=== PATIENT | female | born 1995 | race Caucasian/White ===

== ENCOUNTER → 2016-03-04 | Outpatient (CLI) | payer BC ==
[~2016-03-04] MED LIST: ONDA4TAB46 PO; OXYC-57 PO; PRENTAB26 PO
[2016-03-04 10:59] LABS: HEMATOCRIT 35.8 % (37-47)
== END | disposition home or self-care (01) ==
LOC: C.LAB1850 09:26
PROVIDERS: ATTEND Obstetrics & Gynecology
DX: O28.1 Abnormal biochemical finding on antenatal screening of mother (principal)

== ENCOUNTER 2016-06-19 11:05 | Day surgery (SDC) | payer BC, OTHER ==
[2016-06-16 08:54] VITALS: BMI 28.0
[~2016-06-19] VITALS: Ht 175.3 cm; Wt 88.6 kg
--- NOTE | 2016-06-19 08:33 | Endo History and Physical ---
History & Physical Date of Service: June 19, 2016. Chief Complaint: Abdominal pain Referring Physician: Dr. turner / Ms. Vieyra History of Present Illness 20 year old female found to have elevated liver tests, ruq pain and an ultrasound with biliary sludge and stones in the GB. Referred for EUS to evaluate for evidence of CBD stones and need of ERCP (if positive) Past Surgical History Hx Cardiac Surgery: No Hx Abdominal Surgery: Yes ( APRIL 2016) Hx Post-Op Nausea and Vomiting: No Hx Cancer Surgery: No Hx Thoracic Surgery: No Hx Orthopedic: No Hx Urinary Tract Surgery: No Social History Smoking Status: Never Smoker Hx Substance Use: No Hx Alcohol Use: No Allergies Coded Allergies: No Known Allergies (Unverified , 06/19/16) Current Medications Reported Home Medications Medications Dose Route/Sig Max Daily Dose Days Date Category Dose Instructions Zofran (Ondansetron HCl) 4 Mg Tab 4 Mg PO Q8H PRN 06/16/16 Reported Percocet 5MG/325MG (Oxycodone/Acetaminophen) Tab 1 Tablet PO Q4H PRN 06/16/16 Reported PAIN Vitamin (Prenat Multivit/Switch Adjuster/Iron/Folic Ac) Tab 1 Tab PO DAILY 06/16/16 Reported Vital Signs Weight (Kilograms): 88.64 Height (Feet): 5 Height (Inches): 9 Physical Exam General Appearance: no apparent distress Respiratory/Chest: Auscultation: breath sounds normal Cardiovascular: Heart Auscultation: RRR Abdomen: Inspection & Palpation: soft Assessment and Plan Patient referred for EUS and possible ERCP to evaluate for suspect CBD stones. We have discussed the risks to include bleeding, infection, perforation, pain, and pancreatitis.
[~2016-06-19 11:05] MED LIST changes: +FENTANYL CITRATE INJ 50 MCG/1 ML 2 ML VIAL ONE; +INDOMETHACIN 50 MG SUPP PR SCH; +LACTATED RINGER'S 1000ML 1,000 ML IV ONE; +LACTATED RINGER'S 1000ML 1,000 ML IV SCH; +MIDAZOLAM HCL 1 MG/ML 2ML VIAL ONE; -PRENTAB26 PO
[2016-06-19 11:15] VITALS: BP 113/70; PULSE 72; TEMP 36.7; O2SAT 98; Ht 175.3 cm; Wt 88.6 kg
[2016-06-19] MEDS ORDERED: METOCLOPRAMIDE HCL INJ 5 MG/ML 2 ML VIAL IV PRN (11:45)
[2016-06-19] MEDS ORDERED: FENTANYL CITRATE INJ 50 MCG/1 ML 2 ML VIAL IV PRN (11:45)
[2016-06-19] MEDS ORDERED: DiphenhydrAMINE HCL 50 MG/ML VIAL IV PRN (11:45)
[2016-06-19] MEDS ORDERED: LACTATED RINGER'S 1000ML 1,000 ML IV PRN (11:45)
[2016-06-19] MEDS ORDERED: ONDANSETRON INJ 2 MG/ML 2 ML VIAL IV PRN ×2 (11:45→12:30)
--- NOTE | 2016-06-19 12:03 | GI REPORT ---
Procedure Date: 06/19/2016 11:52 AM Procedure: Upper GI endoscopy Indications: Epigastric abdominal pain, Abdominal pain in the right upper quadrant Medicines: General Anesthesia Complications: No immediate complications. Estimated blood loss: Minimal. Estimated Blood Loss: Estimated blood loss was minimal. Procedure: Pre-Anesthesia Assessment: - Prior to the procedure, a History and Physical was performed, and patient medications, allergies and sensitivities were reviewed. The patient's tolerance of previous anesthesia was reviewed. - The risks and benefits of the procedure and the sedation options and risks were discussed with the patient. All questions were answered and informed consent was obtained. - Patient identification and proposed procedure were verified prior to the procedure by the physician, the nurse and the fitness and wellness manager. The procedure was verified in the procedure room. - Pre-procedure physical examination revealed no contraindications to sedation. - ASA Grade Assessment: II - A patient with mild systemic disease. - After reviewing the risks and benefits, the patient was deemed in satisfactory condition to undergo the procedure. - The anesthesia plan was to use general anesthesia. - Immediately prior to administration of medications, the patient was re-assessed for adequacy to receive sedatives. - The heart rate, respiratory rate, oxygen saturations, blood pressure, adequacy of pulmonary ventilation, and response to care were monitored throughout the procedure. - The physical status of the patient was re-assessed after the procedure. After obtaining informed consent, the endoscope was passed under direct vision. Throughout the procedure, the patient's blood pressure, pulse, and oxygen saturations were monitored continuously. The scope was introduced through the mouth, and advanced to the third part of duodenum. The upper GI endoscopy was accomplished without difficulty. The patient tolerated the procedure well. Findings: The examined esophagus was normal. The Z-line was regular and was found 36 cm from the incisors. The entire examined stomach was normal. The examined duodenum was normal. Impression: - Normal esophagus. - Z-line regular, 36 cm from the incisors. - Normal stomach. - Normal examined duodenum. - No specimens collected. Recommendation: - Perform an upper endoscopic ultrasound (UEUS) today. Bernardo Tracy D.O. Bernardo Tracy DO 06/19/2016 12:03:45 PM This report has been signed electronically. Note Initiated On: 06/19/2016 11:52 AM I attest to the content of the Intraoperative Record and orders documented therein, exceptions below
[2016-06-19] MEDS ORDERED: LIDOCAINE HCL 2% 2 ML VIAL (20MG/ML) ONE (12:13)
[2016-06-19] MEDS ORDERED: DEXAMETHASONE SOD INJ 4 MG/ML VIAL ONE (12:13)
[2016-06-19] MEDS ORDERED: SUCCINYLCHOLINE CHLORIDE 20 MG/ML 10 ML VIAL IV ONE (12:13)
[2016-06-19] MEDS ORDERED: ONDANSETRON INJ 2 MG/ML 2 ML VIAL ONE (12:13)
[2016-06-19] MEDS ORDERED: PROPOFOL IV EMULSION 10 MG/ML 20 ML VIAL IV ONE (12:13)
[2016-06-19] MEDS ORDERED: ROCURONIUM BROMIDE 10 MG/ML 5 ML VIAL ONE (12:13)
[2016-06-19] MEDS ORDERED: LARYING-O-JET KIT (LTA) EXT ONE ×2 (12:19)
--- NOTE | 2016-06-19 12:24 | GI REPORT ---
Procedure Date: 06/19/2016 12:03 PM Procedure: Upper EUS Indications: Abnormal liver function test, Suspected choledocholithiasis, Epigastric abdominal pain, Abdominal pain in the right upper quadrant Medicines: General Anesthesia Complications: No immediate complications. Estimated blood loss: Minimal. Estimated Blood Loss: Estimated blood loss was minimal. Procedure: Pre-Anesthesia Assessment: - Prior to the procedure, a History and Physical was performed, and patient medications, allergies and sensitivities were reviewed. The patient's tolerance of previous anesthesia was reviewed. - The risks and benefits of the procedure and the sedation options and risks were discussed with the patient. All questions were answered and informed consent was obtained. - Patient identification and proposed procedure were verified prior to the procedure by the physician, the nurse and the power screwdriver operator. The procedure was verified in the procedure room. - Pre-procedure physical examination revealed no contraindications to sedation. - ASA Grade Assessment: II - A patient with mild systemic disease. - After reviewing the risks and benefits, the patient was deemed in satisfactory condition to undergo the procedure. - The anesthesia plan was to use general anesthesia. - Immediately prior to administration of medications, the patient was re-assessed for adequacy to receive sedatives. - The heart rate, respiratory rate, oxygen saturations, blood pressure, adequacy of pulmonary ventilation, and response to care were monitored throughout the procedure. - The physical status of the patient was re-assessed after the procedure. After obtaining informed consent, the endoscope was passed under direct vision. Throughout the procedure, the patient's blood pressure, pulse, and oxygen saturations were monitored continuously. The Endosonoscope was introduced through the mouth, and advanced to the second part of duodenum. The upper EUS was accomplished without difficulty. The patient tolerated the procedure well. Findings: Endosonographic Finding : There was no sign of significant endosonographic abnormality in the ampulla. No masses were identified. The ampulla appeared mildly inflammed with a gaping orifice consistent with recent passage of a stone. There was no sign of significant endosonographic abnormality in the common bile duct. No stones and no biliary sludge were identified. The CBD was mildly dilated measuring 5 mm. There was no sign of significant endosonographic abnormality in the liver. Homogeneous parenchyma and no focal pathology were identified. Multiple stones were visualized endosonographically in the gallbladder. The stones measured up to 2 mm in greatest dimension. The stones were round. They were hyperechoic and characterized by shadowing. There was no sign of significant endosonographic abnormality in the entire pancreas. No masses, no cysts, the pancreatic duct was thin in caliber. The PD was 1.3 mm in the body and 2.6 in the pancreatic head. No lymphadenopathy seen. There was no sign of significant endosonographic abnormality in the left adrenal gland. No adrenal gland enlargement was identified. Impression: - Mild inflammation of the ampulla. - 5 mm common bile duct. - Normal liver. - Multiple stones were visualized endosonographically in the gallbladder. - Normal pancreas. - Normal left adrenal. Recommendation: - Discharge patient to home (ambulatory). - Advance diet as tolerated today. - Refer to a surgeon at appointment to be scheduled (cholecystectomy). Bernardo Tracy D.O. Bernardo Tracy, 06/19/2016 12:23:53 PM This report has been signed electronically. Note Initiated On: 06/19/2016 12:03 PM I attest to the content of the Intraoperative Record and orders documented therein, exceptions below
--- NOTE | 2016-06-19 12:31 | [facility] Post Operative Brief Note ---
Immediate Operative Summary Operative Date June 19, 2016. Pre-Operative Diagnosis Gallstones Post-Operative Diagnosis Cholelithiasis No CBD stones seen Procedure(s) Performed Upper Endoscopic Ultrasonography Surgeon Dr. Bernardo Tracy Wastewater Plant Operator Surgeon(s) None Estimated Blood Loss 0ml Findings 5 mm CBD Gallstones (gallbladder) Specimens All specimens handled by ENDO crew Anesthesia General Complication(s) None Disposition Recovery Room / PACU
--- NOTE | 2016-06-19 12:32 | Discharge Instructions ---
Endoscopy Patient Instructions Date / Procedure(s) Performed June 19, 2016. EGD, Other (Endoscopic ultrasound) Allergy Information Coded Allergies: No Known Allergies (Unverified , 06/19/16) Discharge Date / Findings June 19, 2016. Normal upper endoscopy numerous gallstones in the gallbladder Medication Instructions Restart Stopped Medication(s): Reported Home Medications Medications Dose Route/Sig Max Daily Dose Days Date Category Dose Instructions Zofran (Ondansetron HCl) 4 Mg Tab 4 Mg PO Q8H PRN 06/16/16 Reported Percocet 5MG/325MG (Oxycodone/Acetaminophen) Tab 1 Tablet PO Q4H PRN 06/16/16 Reported PAIN Vitamin (Prenat Multivit/Hot Repairman/Iron/Folic Ac) Tab 1 Tab PO DAILY 06/16/16 Reported Reported Home Medications Medications Dose Route/Sig Max Daily Dose Days Date Category Dose Instructions Zofran (Ondansetron HCl) 4 Mg Tab 4 Mg PO Q8H PRN 06/16/16 Reported Percocet 5MG/325MG (Oxycodone/Acetaminophen) Tab 1 Tablet PO Q4H PRN 06/16/16 Reported PAIN Vitamin (Prenat Multivit/Hot Repairman/Iron/Folic Ac) Tab 1 Tab PO DAILY 06/16/16 Reported Provider Instructions Activity Restrictions - No exercising or heavy lifting for 24 hours. - Do not drink alcohol the day of the procedure. - Do not drive a car or operate machinery until the day after the procedure. - Do not make any important decisions or sign important papers in 24 hours after the procedure. Following Day: - Return to full activity which may include returning to work/school. Diet Start your diet with liquids and light foods (jello, soup, juice, toast). Then eat your usual diet if not nauseated. Treatment For Common After Affects For mild abdominal pain, bloating, or excessive gas: - Rest - Eat lightly - Lie on right side Follow-Up Information Follow-up with General Surgery for gallbladder surgery Anesthesia Information What You Should Know You have had a procedure that required some medicine to reduce anxiety and discomfort. This treatment is called moderate sedation. After receiving the treatment, you may be sleepy, but you will be able to breathe on your own. The effects of the treatment may last for several hours. Follow these instructions along with Activity/Diet recommendations noted above: * Do NOT do anything where dizziness or clumsiness would be dangerous. * Rest quietly at home today, then you can be up and about tomorrow. * Have a responsible person stay with you the rest of today. * You may have had an I.V. today. If so, you may take the dressing off later today. Recommendations Call your doctor if: * Trouble breathing * Continuous vomiting for more than 24 hours * Temperature above 101 degrees * Severe abdominal pain or bloating * Pain not relieved by pain medicine ordered * There is increased drainage or redness from any incision * A large amount of rectal bleeding greater than 2-3 tablespoons. (If you had a polyp/s removed or have hemorrhoids, a small amount of blood - from the rectum is to be expected.) * You have any unanswered questions or concerns. IN THE EVENT OF A SERIOUS EMERGENCY, GO TO THE NEAREST EMERGENCY ROOM Your discharge instructions were prepared by provider Bernardo Tracy. Patient Instructions Signature Page Renu Yanez Patient (or Guardian) Signature/Date: I have read and understand the instructions given to me by my caregivers. Caregiver/RN/Doctor Signature/Date: The above-named patient and/or guardian has received patient instructions on this date. + Original Patient Signature Page (only) stays with chart. Please make copy for patient.
[2016-06-19 13:25] VITALS: BP 114/68; PULSE 69; TEMP 36.6; O2SAT 98
[2016-06-19 14:00] VITALS: BP 118/70; PULSE 65; TEMP 36.6; O2SAT 98
--- NOTE | 2016-06-19 14:32 | Anesthesiology Progress Note ---
Anesthesia Post Op Note Date & Time June 19, 2016 at 14:32 Vital Signs Pain Intensity: 0 Vital Signs Past 12 Hours Date Time Temp Pulse Resp B/P Pulse Ox O2 Delivery O2 Flow Rate FiO2 06/19/16 14:00 36.6 65 18 118/70 98 Room Air 06/19/16 13:25 36.6 69 18 114/68 98 Room Air 06/19/16 13:15 36.2 59 15 119/67 97 Room Air 06/19/16 13:05 64 13 115/69 94 Room Air 06/19/16 12:55 61 17 112/70 97 Mask 10 06/19/16 12:45 66 14 107/69 100 Mask 10 06/19/16 12:35 36.0 83 16 110/67 99 Mask 10 06/19/16 11:15 36.7 72 18 113/70 98 Room Air Notes Mental Status: alert / awake / arousable, participated in evaluation Pt Amnestic to Procedure: Yes Nausea / Vomiting: adequately controlled Pain: adequately controlled Airway Patency, RR, SpO2: stable & adequate BP & HR: stable & adequate Hydration State: stable & adequate Anesthetic Complications: no major complications apparent
[2016-06-29] MEDS ORDERED: PRENTAB26 PO (08:52)
== END 2016-06-19 14:15 | disposition home or self-care (01) ==
LOC: C.ACU 11:05
PROVIDERS: ATTEND Internal Medicine Gastroenterology
DX: R10.13 Epigastric pain (principal); K82.8 Other specified diseases of gallbladder; K80.20 Calculus of gallbladder without cholecystitis without obstruction

== ENCOUNTER 2016-06-29 15:56 | Emergency (ER) | payer BC, OTHER ==
[~2016-06-29] VITALS: Ht 175.3 cm; Wt 84.5 kg
[~2016-06-29 15:56] MED LIST changes: -FENTANYL CITRATE INJ 50 MCG/1 ML 2 ML VIAL ONE; -INDOMETHACIN 50 MG SUPP PR SCH; -LACTATED RINGER'S 1000ML 1,000 ML IV ONE; -LACTATED RINGER'S 1000ML 1,000 ML IV SCH; -MIDAZOLAM HCL 1 MG/ML 2ML VIAL ONE; +PRENTAB26 PO
[2016-06-29 16:07] VITALS: Ht 175.3 cm; Wt 84.5 kg
[2016-06-29] MEDS ORDERED: SODIUM CHLORIDE 0.9% 1000ML 1,000 ML IV STA (16:49)
[2016-06-29] MEDS ORDERED: ONDANSETRON INJ 2 MG/ML 2 ML VIAL IV STA (16:49)
[2016-06-29] MEDS ORDERED: MoRPHine SULFATE 4 MG/ML 1 ML CARP\\VIAL IV STA (16:49)
[2016-06-29 17:01] LABS: BASO % 0.2 %; BASO ABS # 0.02 K/uL (0-0.2); COMPLETE YES; EOS % 0.7 %; IG% 0.1 %; LYMPH % 30.8 %; LYMPH ABS # 2.51 K/uL (1.2-3.4); MEAN CELL VOLUME 90.7 fL (80-100); MEAN CORPUSCULAR HEMOGLOBIN 30.3 pg (25-34); MEAN CORPUSCULAR HGB CONC 33.4 g/dl (32-36); MONO % 7.5 %; NEUT % 60.7 %; PLATELET COUNT 269 K/uL (130-400); RED BLOOD COUNT 4.85 M/uL (4.2-5.4); WHITE BLOOD COUNT 8.15 K/uL (4.8-10.8)
[2016-06-29 17:16] LABS: BUN/CREATININE RATIO 17.4 (10-20); CALCIUM 8.9 mg/dl (8.5-10.1); CREATININE 0.76 mg/dl (0.60-1.20); POTASSIUM 3.7 mmol/L (3.5-5.1)
[2016-06-29 17:17] LABS: URINE APPEARANCE CLEAR (CLEAR); URINE BILIRUBIN NEG (NEG); URINE COLOR YELLOW; URINE EPITHELIAL CELL AUTO >30 /lpf (0-5); URINE NITRITE NEG (NEG); URINE PH 5.5 (4.5-7.5); URINE SPECIFIC GRAVITY 1.019 (1.000-1.030); UROBILINOGEN NEG (NEG)
[2016-06-29 17:18] LABS: PREG INTERNAL NEGATIVE QC NEG CLEAR BACKGROUND; PREG INTERNAL POSITIVE QC POS CONTROL LINE
[2016-06-29 17:21] LABS: MANUAL MICROSCOPIC REQUIRED? NO; REVIEW REQ? NO
--- NOTE | 2016-06-29 17:53 | DIAGNOSTIC IMAGING REPORT ---
Right upper quadrant ultrasound GALLBLADDER-ABD LIMITED CLINICAL HISTORY: ABDOMINAL PAIN/GI pain. Nausea. TECHNIQUE: Ultrasound COMPARISON STUDY: None FINDINGS: Fatty infiltration of liver. Combination of small gallstones and sludge within the gallbladder lumen. Mild prominence common bile duct at 7.5 mm. Right kidney is negative for hydronephrosis. Pancreas is poorly seen. IMPRESSION: Fatty infiltration of liver. Combination of gallstones and sludge within the gallbladder lumen. Mild prominence of the biliary ductal system. Electronically signed by: Nicolas Sharp M.D. 06/29/2016 5:51 PM Dictated Date/Time: 06/29/2016 5:50 PM
[2016-06-29 19:45] VITALS: BP 109/68; PULSE 51; TEMP 36.7; O2SAT 96
--- NOTE | 2016-06-29 19:46 | Surgery Consultation ---
Consultation Date of Consultation: June 29, 2016. Attending Physician: History of Present Illness Chief Complaint: Abdominal pain. History of Present Illness: Ms. Green is a 20 year-old white female who ambulates into the ED accompanied by her mother complaining of right upper quadrant abdominal pain. Historically patient reports reports approximately 2 months ago she was seen for right upper quadrant pain and diagnosed with cholelithiasis. She is scheduled for follow-up with a general surgeon for possible cholecystectomy in 2 -3 weeks. Patient reports over the last 48-72 hours she has been having worsening right upper quadrant pain. Today's event started approximately 7:00 this morning, 10 hours ago, has been constant. She describes her pain as a cramping burning sensation in the right upper quadrant. She rates her discomfort 7/10. Her pain has been constant. The pain is radiating into the thoracic back. Her pain worsens when she attempts to eat or drink. She has not identified any alleviating factors related to the pain. Associated with her pain she's been nauseated all day and has had one episode of vomiting. She has not taken any medications for her nausea/vomiting prior to arrival at the hospital. She has had no additional associated symptoms except for her nausea or vomiting. Patient denies fevers, chills, sweats, skin eruptions, skin color changes, upper respiratory tract symptoms, shortness of breath, chest pain, diarrhea, constipation, rectal bleeding, black/tarry stools, urinary symptoms, hematuria, vaginal bleeding, vaginal discharge. I saw pt at ER, pt has abdominal pain now, pt denies nausea, no vomiting at ER, pt denies fever, pt had ERCP 2 weeks ago, Social History Smoking Status: Never Smoker Alcohol Use: occasionally Drug Use: none Allergies Coded Allergies: No Known Allergies (Unverified , 06/19/16) Home Medications Scheduled Multivit/Min/Iron/Fol Ac/Pren ( Vitamin), 1 TAB PO DAILY Review of Systems Constitutional: No chills, No fatigue, No fever, No problem reported, No sweats , No weakness, No weight loss Eyes: No diplopia, No discharge, No eye pain, No problem reported, No redness, No worsening of vision ENT: No dental problems, No hearing loss, No nasal symptoms, No problem reported, No sore throat, No tinnitus, No trouble swallowing, No unusual epistaxis Respiratory: No cough, No dyspnea at rest, No dyspnea on exertion, No hemoptysis, No problem reported, No shortness of breath, No sputum, No wheezing Cardiovascular: No PND, No chest pain, No claudication, No edema, No orthopnea , No palpitations, No problem reported Abdomen: + nausea, + pain, + vomiting Neurologic: No balance problems, No memory loss, No numbness/tingling, No paralysis, No problem reported, No vertigo, No weakness Psychiatric: No anhedonism, No anxiety, No depression symptoms, No insomnia, No problem reported, No substance abuse Endocrine: No excessive thirst, No excessive urination, No fatigue, No problem reported Hematologic / Lymphatic: No abnormal bleeding/bruising, No clotting problems, No night sweats, No problem reported, No swollen lymph nodes Physical Exam Date Time Temp Pulse Resp B/P Pulse Ox O2 Delivery O2 Flow Rate FiO2 06/29/16 18:27 51 18 109/68 06/29/16 18:09 54 06/29/16 16:07 36.7 84 16 115/73 96 Room Air General Appearance: WD/WN, no apparent distress Head: normocephalic, atraumatic ENT: normal ENT inspection Neck: supple, no JVD Respiratory/Chest: chest non-tender, lungs clear, normal breath sounds, no respiratory distress Cardiovascular: regular rate, rhythm, no edema, no gallop, no JVD, no murmur Abdomen/GI: normal bowel sounds, non tender, soft, no organomegaly, no pulsatile mass Extremities/Musculoskelatal: normal inspection, no calf tenderness Neurologic/Psych: no motor/sensory deficits, alert, normal mood/affect Skin: normal color, warm/dry, no rash Laboratory Results Last 24 Hours Test 06/29/16 16:30 06/29/16 16:46 Urine Color YELLOW Urine Appearance CLEAR Urine pH 5.5 Urine Specific [place] 1.019 Urine Protein NEG Urine Glucose (UA) NEG Urine Ketones NEG Urine Occult Blood NEG Urine Nitrite NEG Urine Bilirubin NEG Urine Urobilinogen NEG Urine Leukocyte Esterase SMALL Urine WBC (Auto) 10-30 /hpf Urine RBC (Auto) 0-4 /hpf Urine Hyaline Casts (Auto) 5-10 /lpf Urine Epithelial Cells (Auto) >30 /lpf Urine Bacteria (Auto) 4+ Urine Test NEG White Blood Count 8.15 K/uL Red Blood Count 4.85 M/uL Hemoglobin 14.7 g/dL Hematocrit 44.0 % Mean Corpuscular Volume 90.7 fL Mean Corpuscular Hemoglobin 30.3 pg Mean Corpuscular Hemoglobin Concent 33.4 g/dl Platelet Count 269 K/uL Mean Platelet Volume 11.0 fL Neutrophils (%) (Auto) 60.7 % Lymphocytes (%) (Auto) 30.8 % Monocytes (%) (Auto) 7.5 % Eosinophils (%) (Auto) 0.7 % Basophils (%) (Auto) 0.2 % Neutrophils # (Auto) 4.94 K/uL Lymphocytes # (Auto) 2.51 K/uL Monocytes # (Auto) 0.61 K/uL Eosinophils # (Auto) 0.06 K/uL Basophils # (Auto) 0.02 K/uL RDW Standard Deviation 45.1 fL RDW Coefficient of Variation 13.6 % Immature Granulocyte % (Auto) 0.1 % Immature Granulocyte # (Auto) 0.01 K/uL Sodium Level 141 mmol/L Potassium Level 3.7 mmol/L Chloride Level 104 mmol/L Carbon Dioxide Level 32 mmol/L Anion Gap 5.0 mmol/L Blood Urea Nitrogen 13 mg/dl Creatinine 0.76 mg/dl Est Creatinine Clear Calc Drug Dose 134.8 ml/min Estimated GFR () 129.1 Estimated GFR (Non- 111.3 BUN/Creatinine Ratio 17.4 Random Glucose 87 mg/dl Calcium Level 8.9 mg/dl Total Bilirubin 0.4 mg/dl Direct Bilirubin 0.2 mg/dl Aspartate Amino Transf (AST/SGOT) 33 U/L Alanine Aminotransferase (ALT/SGPT) 225 U/L Alkaline Phosphatase 224 U/L Total Protein 8.2 gm/dl Albumin 4.2 gm/dl Lipase 153 U/L Assessment & Plan Right upper quadrant ultrasound GALLBLADDER-ABD LIMITED CLINICAL HISTORY: ABDOMINAL PAIN/GI pain. Nausea. TECHNIQUE: Ultrasound COMPARISON STUDY: None FINDINGS: Fatty infiltration of liver. Combination of small gallstones and sludge within the gallbladder lumen. Mild prominence common bile duct at 7.5 mm. Right kidney is negative for hydronephrosis. Pancreas is poorly seen. IMPRESSION: Fatty infiltration of liver. Combination of gallstones and sludge within the gallbladder lumen. Mild prominence of the biliary ductal system. IMP: cholelithiasis, biliary pain, acute abdominal pain Plan: I offer pt to stay hospital overnight, to do laparoscopic cholecystectomy possible open or cholangiogram tomorrow, but pt wants to go home today, and pt wants to come back to do surgery tomorrow, D/W benefits, risks and alternatives of the procedure, the risks- infection, bleeding, injury CBD, Bowel, incisional hernia, and , pt and her Mom understood they agree with the plan, D/W ER attending,
[2016-06-29] MEDS ORDERED: ONDANSETRON HOME PACK 4MG OD TAB PO ONE (20:00)
--- NOTE | 2016-06-30 00:42 | EMERGENCY ROOM VISIT NOTE ---
ED Visit Note First contact with patient: 16:31 Chief Complaint: Abdominal pain. History of Present Illness: Ms. Green is a 20 year-old white female who ambulates into the ED accompanied by her mother complaining of right upper quadrant abdominal pain. Historically patient reports reports approximately 2 months ago she was seen for right upper quadrant pain and diagnosed with cholelithiasis. She is scheduled for follow-up with a general surgeon for possible cholecystectomy in 2 -3 weeks. Patient reports over the last 48-72 hours she has been having worsening right upper quadrant pain. Today's event started approximately 7:00 this morning, 10 hours ago, has been constant. She describes her pain as a cramping burning sensation in the right upper quadrant. She rates her discomfort 7/10. Her pain has been constant. The pain is radiating into the thoracic back. Her pain worsens when she attempts to eat or drink. She has not identified any alleviating factors related to the pain. Associated with her pain she's been nauseated all day and has had one episode of vomiting. She has not taken any medications for her nausea/vomiting prior to arrival at the hospital. She has had no additional associated symptoms except for her nausea or vomiting. Patient denies fevers, chills, sweats, skin eruptions, skin color changes, upper respiratory tract symptoms, shortness of breath, chest pain, diarrhea, constipation, rectal bleeding, black/tarry stools, urinary symptoms, hematuria, vaginal bleeding, vaginal discharge. Review of Systems: As noted above in history of present illness. All body systems were reviewed and found to be negative as noted above. Past Medical History: As previously noted, unspecified urinary problems, status post section. Current Medications: vitamins. Allergies to Medications: Patient denies. Social History: Patient is not employed; she feels safe in her home environment ; she denies tobacco and alcohol use. Physical Examination: Vital Signs: Date Time Temp Pulse Resp B/P Pulse Ox O2 Delivery O2 Flow Rate FiO2 06/29/16 19:45 36.7 51 18 109/68 96 06/29/16 18:27 51 18 109/68 06/29/16 18:09 54 06/29/16 16:07 36.7 84 16 115/73 96 Room Air GENERAL: 20-year-old female in mild distress due to pain, nontoxic-appearing, afebrile and hemodynamically stable. NEUROLOGICAL: Awake, alert and oriented to person, place and time. Answering questions appropriately and following commands. Normal gait. Good hand eye coordination. SKIN: Warm, dry and pink. No soft tissue eruptions or trauma noted. HEENT: Atraumatic and normocephalic. PERRL. Sclera white and conjunctiva pink. Oral cavity moist and pink. Pharynx is nonerythematous or edematous. Speech normal. No lymphadenopathy. Trachea midline. No jugular venous distention. BACK: No tenderness over the bony spine. No CVA tenderness. THORAX: Lungs sounds are clear to auscultation and equal bilaterally with symmetrical chest wall. No wheezing, rales or rhonchi. No crepitus, tenderness , subcutaneous air or deformities noted. HEART: Regular rate and rhythm. No gallops, rubs or murmurs are appreciated. ABDOMEN: Flat, soft and nontender. Positive bowel sounds in all quadrants. No guarding, rigidity or organomegaly. EXTREMITIES: Moves all extremities well on command and with purpose. All distal neurovascular statuses are intact and equal bilaterally. ED Course: Patient is assessed as noted above. Laboratory Testing: Test 06/29/16 16:30 06/29/16 16:46 Range/Units Urine Color YELLOW Urine Appearance CLEAR CLEAR Urine pH 5.5 4.5-7.5 Urine Specific Zeigler 1.019 1.000-1.030 Urine Protein NEG NEG Urine Glucose (UA) NEG NEG Urine Ketones NEG NEG Urine Occult Blood NEG NEG Urine Nitrite NEG NEG Urine Bilirubin NEG NEG Urine Urobilinogen NEG NEG Urine Leukocyte Esterase SMALL NEG Urine WBC (Auto) 10-30 0-5 /hpf Urine RBC (Auto) 0-4 0-4 /hpf Urine Hyaline Casts (Auto) 5-10 0-5 /lpf Urine Epithelial Cells (Auto) >30 0-5 /lpf Urine Bacteria (Auto) 4+ NEG Urine Test NEG NEG White Blood Count 8.15 4.8-10.8 K/uL Red Blood Count 4.85 4.2-5.4 M/uL Hemoglobin 14.7 12.0-16.0 g/dL Hematocrit 44.0 37-47 % Mean Corpuscular Volume 90.7 80-100 fL Mean Corpuscular Hemoglobin 30.3 25-34 pg Mean Corpuscular Hemoglobin Concent 33.4 32-36 g/dl Platelet Count 269 130-400 K/uL Mean Platelet Volume 11.0 7.4-10.4 fL Neutrophils (%) (Auto) 60.7 % Lymphocytes (%) (Auto) 30.8 % Monocytes (%) (Auto) 7.5 % Eosinophils (%) (Auto) 0.7 % Basophils (%) (Auto) 0.2 % Neutrophils # (Auto) 4.94 1.4-6.5 K/uL Lymphocytes # (Auto) 2.51 1.2-3.4 K/uL Monocytes # (Auto) 0.61 0.11-0.59 K/uL Eosinophils # (Auto) 0.06 0-0.5 K/uL Basophils # (Auto) 0.02 0-0.2 K/uL RDW Standard Deviation 45.1 36.4-46.3 fL RDW Coefficient of Variation 13.6 11.5-14.5 % Immature Granulocyte % (Auto) 0.1 % Immature Granulocyte # (Auto) 0.01 0.00-0.02 K/uL Sodium Level 141 136-145 mmol/L Potassium Level 3.7 3.5-5.1 mmol/L Chloride Level 104 98-107 mmol/L Carbon Dioxide Level 32 21-32 mmol/L Anion Gap 5.0 3-11 mmol/L Blood Urea Nitrogen 13 7-18 mg/dl Creatinine 0.76 0.60-1.20 mg/dl Est Creatinine Clear Calc Drug Dose 134.8 ml/min Estimated GFR () 129.1 Estimated GFR (Non- 111.3 BUN/Creatinine Ratio 17.4 10-20 Random Glucose 87 70-99 mg/dl Calcium Level 8.9 8.5-10.1 mg/dl Total Bilirubin 0.4 0.2-1 mg/dl Direct Bilirubin 0.2 0-0.2 mg/dl Aspartate Amino Transf (AST/SGOT) 33 15-37 U/L Alanine Aminotransferase (ALT/SGPT) 225 12-78 U/L Alkaline Phosphatase 224 45-117 U/L Total Protein 8.2 6.4-8.2 gm/dl Albumin 4.2 3.4-5.0 gm/dl Lipase 153 73-393 U/L Urine Culture: Pending Gallbladder Ultrasound: Was reviewed by myself and read by the radiologist and shows fatty infiltration of liver, combination of gallstones and sludge within the gallbladder lumen and mild prominence of the biliary ductal system. Patient was hydrated with normal saline and she received 4 mg of Zofran IV and 4 mg of morphine IV for her symptoms. Patient was reassessed multiple times during her stay in the emergency department. Patient's case was reviewed with Dr. Knapp; we agreed on diagnostic approach, treatment, disposition and plan. Patient's case was consulted with Dr. Tovar, general surgery; he assessed the patient and offered her surgery. She did not on her stay overnight in the hospital waiting for her surgery tomorrow and request discharged and return tomorrow. Patient was educated about today's findings and instructed on her treatment plan ; she verbalizes understanding and agreement with this plan. Clinical Impression: Acute abdominal pain. Cholelithiasis with prominence of the biliary duct system. Decision-Making: Initially my differential diagnosis I can sit her biliary colic , cholecystitis, hepatitis, pancreatitis, pyelonephritis, kidney stone and other causes. Additionally I was able to review patient's laboratory testing from [facility] and her liver enzymes has actually improved. Also when comparing her recent ERCP to today's ultrasound her common bile duct was 5 mm and 7.5 mm respectively. Disposition: Patient discharged home in stable condition accompanied by her mother; prior to departure she was reassessed and subjectively reported she was feeling better and rated her overall discomfort 2/10 and reported resolution of nausea Plan: Patient was encouraged to remain nothing by mouth starting at midnight. Patient was given a home pack of Zofran for nausea and instructed on their use. Patient was encouraged return in the morning to have a cholecystectomy. Patient was encouraged to return to the night for uncontrolled pain, uncontrolled vomiting, fevers or any new/concerning symptoms.
--- NOTE | 2016-07-01 15:41 | Pharmacy Progress Note ---
ED Pharmacist Culture FollowUp Date of Service: July 01, 2016. Patient s/p bill victor 06/30 2nd this ED visit. E. coli now isolated from urine culture. Patient denied urinary symptoms. UA with a significant amount of epithelial cells and negative for nitrite. Likely contaminant. No intervention required at this time. Case discussed with Alexy Connolly PA-C.
== END 2016-06-29 19:57 | disposition home or self-care (01) ==
LOC: C.EDB 15:56 → C.EDA 19:57
DX: K80.50 Calculus of bile duct without cholangitis or cholecystitis without obstruction (principal); Z90.49 Acquired absence of other specified parts of digestive tract

== ENCOUNTER 2016-06-30 09:25 | Day surgery (SDC) | payer BC, OTHER ==
[~2016-06-30] VITALS: Ht 175.3 cm; Wt 88.0 kg
[~2016-06-30 09:25] MED LIST changes: -ONDA4TAB46 PO; -OXYC-57 PO
[2016-06-30 11:19] VITALS: BP 123/71; PULSE 59; TEMP 36.9; O2SAT 97; Ht 175.3 cm; Wt 88.0 kg
--- NOTE | 2016-06-30 11:27 | History & Physical Bridge Note ---
H&P Re-Evaluation Bridge Note: I have examined the patient, reviewed the History & Physical and in the interval since the performance of the History & Physical I have noted the following changes of clinical significance: No changes noted
[2016-06-30] MEDS ORDERED: BACITRACIN OINT 15 GM TUBE ONE ×2 (12:14→12:55)
[2016-06-30] MEDS ORDERED: CONRAY 60% 50 ML VIAL ONE (12:14)
[2016-06-30] MEDS ORDERED: CEFAZOLIN IV 2,000 MG/60 ML D5W IV ONE (12:20)
[2016-06-30] MEDS ORDERED: MIDAZOLAM HCL 1 MG/ML 2ML VIAL ONE (12:34)
[2016-06-30] MEDS ORDERED: FENTANYL CITRATE INJ 50 MCG/1 ML 2 ML VIAL ONE ×4 (12:35→16:05)
[2016-06-30] MEDS ORDERED: LIDOCAINE HCL 1% 20 ML VIAL ONE (12:54)
[2016-06-30] MEDS ORDERED: BUPIVACAINE 0.5 % 5 MG/1 ML MPF 30ML VIAL ONE (12:55)
[2016-06-30] MEDS ORDERED: HYDROmorphone INJ 2 MG/ML SYR/VIAL ONE (13:42)
[2016-06-30] MEDS ORDERED: CISATRACURIUM BESYLATE IV SOLN 2 MG/ML 10 ML VIAL ONE (14:14)
[2016-06-30] MEDS ORDERED: LIDOCAINE HCL 2% 2 ML VIAL (20MG/ML) ONE (14:14)
[2016-06-30] MEDS ORDERED: PROPOFOL IV EMULSION 10 MG/ML 20 ML VIAL IV ONE (14:14)
[2016-06-30] MEDS ORDERED: ONDANSETRON INJ 2 MG/ML 2 ML VIAL ONE (14:14)
[2016-06-30] MEDS ORDERED: GLYCOPYRROLATE INJ 0.2 MG/ML VIAL ONE (14:14)
[2016-06-30] MEDS ORDERED: NEOSTIGMINE METHYLSULFATE 5 MG/5 ML SYR ONE (14:14)
[2016-06-30] MEDS ORDERED: D5W AND 1/2NSS + 20MEQ KCL 1,000 ML IV SCH (15:35)
--- NOTE | 2016-06-30 15:35 | [facility] Post Operative Brief Note ---
Immediate Operative Summary Operative Date June 30, 2016. Pre-Operative Diagnosis Acute cholecystitis, cholelithiasis. Post-Operative Diagnosis Same as preop. Procedure(s) Performed Laparoscopic cholecystectomy. Surgeon Dr. Tovar Geothermal System Installer Surgeon(s) None Estimated Blood Loss 15 ML Findings acute cholecystitis, cholelithiasis Specimens A: Gallbladder. Drains none Anesthesia general Complication(s) None Disposition Recovery Room / PACU
--- NOTE | 2016-06-30 15:40 | Discharge Instructions ---
Discharge Instructions Date of Service June 30, 2016. Visit Reason for Visit: Cholelithiasis Discharge Discharge Diagnosis / Problem: S/P laparoscopic cholecystectomy Discharge Goals Goal(s): Decrease discomfort, Improve function, Improve nutritional status Activity Recommendations Activity Limitations: per Instructions/Follow-up section Lifting Limitations: no more than 25 pounds Exercise/Sports Limitations: gradually increase as tolerated May Resume Sexual Activity: when tolerated Shower/Bathe: may shower/bathe in 3 days Driving or Machine Use: resume 3 days after discharge Anesthesia . Post Anesthesia Instructions: If you have had General Anesthesia or IV Sedation: * Do not drive today. * Resume driving when surgeon permits. * Do not make important decisions or sign legal documents today. * Call surgeon for: 1. Temperature elevations greater than 101 degrees F. 2. Uncontrollable pain. 3. Excessive bleeding. 4. Persistent nausea and vomiting. 5. Medication intolerance (nausea, vomiting or rash). * For nausea and vomiting use only clear liquids such as: tea, soda, bouillon until nausea subsides, then gradually increase diet as tolerated. * If you have any concerns or questions, call your surgeon's office. If physician is unavailable and it is an emergency, call 911 or go to the nearest emergency room. . Instructions / Follow-Up Instructions / Follow-Up keep all dressing on for 4 days, she can take a shower on 07/04/2016, no heavy lifting > 25 Lbs for 4 weeks, Follow up 1 week, Diet Recommendations Recommended Home Diet: resume previous diet Procedures Procedures Performed: Laparoscopic cholecystectomy. Pending Studies Studies pending at discharge: no Medical Emergencies . Who to Call and When: Medical Emergencies: If at any time you feel your situation is an emergency, please call 911 immediately. . Non-Emergent Contact Non-Emergency issues call your: Surgeon Call Non-Emergent contact if: you have a fever, temperature is above 100.5, your pain is not controlled, your pain is worsening, wound has increased drainage, wound has increased redness . . "Provider Documentation" section prepared by Cyn Tovar. . [place] Drug Monitoring Program Search Results: no issues identified
[2016-06-30] MEDS ORDERED: OXYCODONE/ACETAMINOPHEN 5-325 TAB PO PRN (15:45)
[2016-06-30] MEDS ORDERED: ONDANSETRON INJ 2 MG/ML 2 ML VIAL IV PRN ×2 (15:45→16:00)
[2016-06-30] MEDS ORDERED: HYDROmorphone INJ 1 MG/ML SYR IV PRN (15:45)
[2016-06-30] MEDS ORDERED: ACETAMINOPHEN 325 MG TAB PO PRN (15:45)
[2016-06-30] MEDS: FENTANYL CITRATE INJ 50 MCG/1 ML 2 ML VIAL IV PRN ×3 (15:45→16:05)
[2016-06-30] MEDS ORDERED: PROMETHAZINE HCL INJ 6.25 MG in SODIUM CHLORIDE 0.9% 50ML 50 ML IV PRN (16:00)
[2016-06-30] MEDS ORDERED: EpHEDrine SULFATE INJ 50 MG/ML AMP IV PRN (16:00)
[2016-06-30] MEDS ORDERED: ATROPINE SULFATE 0.1 MG/ML 5ML SYR IV PRN (16:00)
--- NOTE | 2016-06-30 16:18 | Anesthesiology Progress Note ---
Anesthesia Post Op Note Date & Time June 30, 2016 at 16:18 Vital Signs Pain Intensity: 4 Vital Signs Past 12 Hours Date Time Temp Pulse Resp B/P Pulse Ox O2 Delivery O2 Flow Rate FiO2 06/30/16 16:05 55 12 113/68 96 Room Air 06/30/16 15:55 53 12 128/69 100 Mask 10 06/30/16 15:45 52 12 137/74 100 Mask 10 06/30/16 15:37 36.8 53 12 135/80 100 Mask 10 06/30/16 11:19 36.9 59 18 123/71 97 Room Air Notes Mental Status: alert / awake / arousable, participated in evaluation Pt Amnestic to Procedure: Yes Nausea / Vomiting: adequately controlled Pain: adequately controlled Airway Patency, RR, SpO2: stable & adequate BP & HR: stable & adequate Hydration State: stable & adequate Anesthetic Complications: no major complications apparent
[2016-06-30 16:30] VITALS: BP 129/71; PULSE 55; TEMP 36.8; O2SAT 98
[2016-06-30 17:00] VITALS: BP 131/72; PULSE 72; O2SAT 98
[2016-06-30] MEDS ORDERED: NURSING VERBAL MED ORDER ONE (17:20)
[2016-06-30 17:30] VITALS: BP 133/74; PULSE 60; TEMP 36.6; O2SAT 98
[2016-06-30] MEDS ORDERED: PERCOCET HOME PACK PO ONE (18:00)
--- NOTE | 2016-06-30 20:04 | OPERATIVE REPORT ---
DATE OF OPERATION: 06/30/2016 PREOPERATIVE DIAGNOSES: Acute cholecystitis, cholelithiasis. POSTOPERATIVE DIAGNOSIS: Same. PROCEDURE: Laparoscopic cholecystectomy. SURGEON: Cyn Tovar M.D. ANESTHESIA: General. ESTIMATED BLOOD LOSS: About 15 mL. FINDINGS: Acute cholecystitis, cholelithiasis. COMPLICATIONS: None. INDICATIONS FOR THE PROCEDURE: This is a 20-year-old female who presented to the ED with 4 days' history of right upper quadrant pain. The patient had ultrasound which showed acute cholecystitis with gallstones and the patient required laparoscopic cholecystectomy, possible open, possible cholangiogram. I did talk to the patient about the benefit and risk, alternate procedure. I indicated the risks may include but not limited such as bleeding, infection, injury to common bile duct, injury to bowel, bile leak, may need an ERCP, even . The patient understands, she signed informed consent and I answered all questions. DETAILS OF PROCEDURE: We brought the patient to the OR, put the patient in the supine position. The patient received SCDs on bilateral legs to prevent DVT. Also, the patient received 2 grams Ancef IV for prophylactic antibiotic. The patient received general anesthesia without difficulty. The abdomen was prepped and draped in routine sterile fashion. After time out, I injected the local anesthesia by using 1% lidocaine mixed with 0.25% Marcaine just above umbilicus. I made a small incision just above umbilicus, opened fascia and opened peritoneum under direct vision, I put a Lottie trocar in, connected to CO2 to create pneumoperitoneum. Flow rate at 6 liter per minute, pressure not more than 14 mmHg. Once we got a nice pneumoperitoneum, we put a 10 mm camera in, looked around the abdomen showing normal finding on the stomach, small bowel, large bowel, liver; however, significant gallbladder wall thickening, edema. There omentum covering the gallbladder showing acute cholecystitis. Then, we put another three 5 mm trocar on the right upper quadrant. Once all trocars in, we put a grasper in to hold the base of the gallbladder, put direction to the diaphragm and then we put another grasper in to hold the pouch of the gallbladder, put latter to expose the triangle of Calot. The cystic duct was identified and mobilized. Then I put two 5 mm metal clips on the proximal cystic duct, around the distal cystic duct. Then I used scissor transecting the cystic duct. Then the cystic artery was identified and mobilized. I put two 5 mm metal clips on the proximal cystic artery, 1 on the distal cystic artery. Then, I used scissor transection the cystic artery. Rechecked, no active bleeding, no bile leak. Then we took down the gallbladder from the liver bed without difficulty. Then we pulled out the gallbladder through the catch bag. Then we reinserted Lottie trocar in, connected CO2 to create pneumoperitoneum again to look around the abdomen, no bile leak and no active bleeding from the liver bed. No injury to the bowel and we removed all trocars under direct vision. No active bleeding from trocar sites. The pneumoperitoneum was released. Then I closed the umbilical incision in fascial layer by using #1 Vicryl [id number] x2, closed subcutaneous layer by using 2-0 Vicryl, closed skin by using 4-0 Vicryl. Then we closed another three 5 mm trocar site skin only by using 4-0 Vicryl. The patient tolerated the procedure well. All the instrument, needle and sponge count correct x2 at the end of case. The specimen sent to pathology. The patient transferred to recovery room in stable condition. After the procedure, I did talk to the patient's family member about OR finding and procedure we did, they understand. I attest to the content of the Intraoperative Record and any orders documented therein. Any exceptions are noted below. DIANA
== END 2016-06-30 18:08 | disposition home or self-care (01) ==
LOC: C.ACU 09:25
PROVIDERS: ATTEND Surgery
DX: K80.12 Calculus of gallbladder with acute and chronic cholecystitis without obstruction (principal)

== ENCOUNTER 2023-01-11 05:31 | Inpatient (IN) ==
--- NOTE | 2022-12-30 13:31 | Anesthesiology Consultation ---
Date of Service December 30, 2022 Assessment & Plan Chart Review Chart Review: medical data entry clerk initiated History Surgery Operation Date: 01/11/23 07:30 Proposed Procedures p Section (Delivery of Baby Through Abdominal Incision) - Awais Major MD Height/Weight Height: 5 ft 8 in Weight: 99.79 kg Allergies Allergy/AdvReac Type Severity Reaction Status Date / Time No Known Allergies Allergy Verified 12/30/22 12:28 Medications Home Medications Medication Instructions Recorded Confirmed Last Taken PNV 399-[id number]-[id number]-3-[id number] oil 1 dose PO QAM 06/11/22 12/30/22 Unknown [ with DHA-Folic Acid] blood sugar diagnostic (OneTouch #150 ea 10/06/22 12/29/22 Unknown Verio test strips) lancets 33 gauge #150 ea 10/06/22 12/29/22 Unknown acetone (urine) test (Ketone Urine #50 ea 10/13/22 12/29/22 Unknown Test strips) blood-glucose meter (OneTouch #1 ea 10/13/22 12/29/22 Unknown Verio Reflect Meter) Past Medical History Medical History Bulging lumbar disc Gestational diabetes Herniated disc Varicella vaccine Past Family History Family History Mother Diabetes Depression Heart disease Kidney disease S/P removal of parathyroid gland Father Diabetes Grandmother (Maternal) Colorectal cancer Grandfather Colorectal cancer Grandmother (Paternal) Lung cancer Grandfather (Paternal) Lung cancer Other No family history of adverse response to anesthesia Denies family history of Ovarian cancer Prostate cancer Myocardial infarction Breast cancer Past Surgical History Surgical History S/P cholecystectomy History of Social History Smoking Status: Never smoker Do You Dip or Chew Tobacco: No Hx Alcohol Use: No Hx Substance Use: No substance use type: does not use
[2023-01-11] MEDS ORDERED: LIDOCAINE 1% LOCAL 20 ML VIAL INFIL PRN (05:33)
[2023-01-11] MEDS ORDERED: OXYTOCIN 30 UNITS/NSS 30 UNITS/500 ML BAG IV PRN (05:33)
[2023-01-11] MEDS ORDERED: LACTATED RINGER'S 1,000 ML IV ONE (05:43)
[2023-01-11] MEDS ORDERED: CITRIC ACID/SODIUM CITRATE 15 ML UDC PO ONE (05:51)
[2023-01-11 06:41] LABS: Adenovirus PCR Not Detected (NotDetected); Bordetella parapertussis PCR Not Detected (NotDetected); Bordetella pertussis PCR Not Detected (NotDetected); Chlamydia pneumoniae PCR Not Detected (NotDetected); Coronavirus 229E PCR Not Detected (NotDetected); Coronavirus HKU1 PCR Not Detected (NotDetected); Coronavirus NL63 PCR Not Detected (NotDetected); Coronavirus OC43PCR Not Detected (NotDetected); Human Metapneumovirus PCR Not Detected (NotDetected); Influenza A PCR Not Detected (NotDetected); Influenza B PCR Not Detected (NotDetected); Mycoplasma pneumoniae PCR Not Detected (NotDetected); Parainfluenza Virus 1 PCR Not Detected (NotDetected); Parainfluenza Virus 2 PCR Not Detected (NotDetected); Parainfluenza Virus 3 PCR Not Detected (NotDetected); Parainfluenza Virus 4 PCR Not Detected (NotDetected); Respiratory Syncytial VirusPCR Not Detected (NotDetected); Rhinovirus/Enterovirus PCR Not Detected (NotDetected)
[2023-01-11 06:43] LABS: Coronavirus CoV-2 (COVID19)PCR DETECTED (NotDetected)
[2023-01-11] MEDS ORDERED: fentaNYL citrate PF 100 MCG/2 ML VIAL ONE (06:52)
[2023-01-11] MEDS ORDERED: PHENYLEPHRINE HCL 10 MG/ML VIAL ONE (06:52)
[2023-01-11] MEDS ORDERED: MoRPHine SULFATE PF 1 MG/ML 10 ML AMP/VIAL ONE (06:52)
[2023-01-11] MEDS ORDERED: OXYTOCIN 10 UNITS/ML VIAL ONE (07:10)
[2023-01-11] MEDS ORDERED: CARBOPROST TROMETHAMINE 250 MCG/ML AMPUL ONE (07:10)
[2023-01-11] MEDS ORDERED: NALBUPHINE HCL 5 MG in SYRINGE 0 ML IV PRN (07:26)
[2023-01-11] MEDS ORDERED: diphenhydrAMINE 50 MG/ML VIAL IV PRN (07:26)
[2023-01-11] MEDS ORDERED: LACTATED RINGER'S 500 ML IV PRN (07:26)
[2023-01-11] MEDS ORDERED: ePHEDrine sulfate 50 MG/ML AMP IV PRN (07:26)
[2023-01-11] MEDS ORDERED: NALOXONE HCL 0.08 MG in SYRINGE 1.8 ML IV PRN (07:26)
[2023-01-11] MEDS ORDERED: NALOXONE HCL 0.4 MG/1 ML VIAL/CARP IV PRN (07:26)
[2023-01-11] MEDS ORDERED: MoRPHine SULFATE PF 1 MG/ML 10 ML AMP/VIAL INT SPINAL ONE (07:26)
[2023-01-11] MEDS ORDERED: HYDROmorphone INJ 0.5 MG/0.5 ML SYR IV PRN (07:26)
[2023-01-11] MEDS ORDERED: NALOXONE HCL 1 MG in SODIUM CHLORIDE 0.9% 1,000 ML IV PRN (07:26)
[2023-01-11] MEDS ORDERED: NO NARCOTICS OR SEDATIVES SCH (07:30)
[2023-01-11] MEDS ORDERED: SODIUM CHLORIDE 0.9% 1,000 ML IV SCH (07:30)
[2023-01-11] MEDS ORDERED: DC INTRASPINAL MORPHINE SCH (07:30)
[2023-01-11 07:31] LABS: Basophils # (auto) 0.01 K/uL (0.00-0.20); Basophils % (auto) 0.2 %; Eosinophils # (auto) 0.03 K/uL (0.00-0.50); Eosinophils % (auto) 0.5 %; Hematocrit (blood only) 35.8 % (37.0-47.0); Hemoglobin 11.8 g/dl (12.0-16.0); Immature Granulocytes # (auto) 0.04 K/uL (0.01-0.20); Immature Granulocytes % (auto) 0.6 %; Lymphocytes # (auto) 1.52 K/uL (1.20-3.40); Lymphocytes % (auto) 24.6 %; Mean Corpuscular Hemoglobin 29.2 pg (25.0-34.0); Mean Corpuscular Volume 88.6 fL (80.0-100.0); Mean Platelet Volume 11.4 fL (9.4-12.4); Monocytes # (auto) 0.74 K/uL (0.11-0.59); Neutrophils # (auto) 3.85 K/uL (1.40-6.50); Neutrophils % (auto) 62.1 %; Platelet Count 217 K/uL (130-400); RDW Coefficient of Variation 14.7 % (11.5-14.5); RDW Standard Deviation 47.1 fL (36.4-46.3); Red Blood Count 4.04 M/uL (4.20-5.40); White Blood Count 6.19 K/ul (4.8-10.8)
--- NOTE | 2023-01-11 07:42 | History & Physical Report ---
Date of Service January 11, 2023 Assessment & Plan (1) 39 weeks gestation of : (2) Gestational diabetes: (3) Encounter for supervision of normal in multigravida: Plan 27yo at 39.3 weeks GA. Planned rLTCS. 1. Fetus: Cat 1 2. Delivery: rLTCS - Consents reviewed and signed 3. vitals: WNL 4. GDM: Will monitor Admission and Anticipated Discharge Date Admission Date: January 11, 2023 History of Present Illness Primary Care Provider: Andreea York DO Renu is a 27yo at 39w3d GA. Presents for rLTCS with Hx of LTCS x1. and Delivery Plans Prior Desires repeat, schedule @ 28wk C/S SCHEDULED FOR 01/11/[address] KRISHNAN Pt Carrier of SMA *FOB negative GDM *Begin monthly Growth US's @24wks Mild left pyelectasis - LEFT PELVIS: 6.6mm. OB Labs: Blood Type A Positive 06/16/22 Antibody Screen NEGATIVE 06/16/22 Hemoglobin 12.2 g/dl (12.0-16.0) 10/29/22 Hematocrit 36.9 % (37.0-47.0) L 10/29/22 Mean Corpuscular Volume 90.5 fL (80.0-100.0) 06/16/22 Platelet Count 188 K/uL (130-400) 06/16/22 Rubella IgG Antibody Equivocal (Immune) L 06/16/22 Rapid Plasma Reagin Nonreactive (Nonreactive) 06/16/22 Hepatitis B Surface Antigen. NON-REACTIVE (NON-REACTIVE) 06/16/22 Hepatitis C Antibody (EIA) NON-REACTIVE (NON-REACTIVE) 06/16/22 HIV (1&2) Ag and Ab Confirmation NON-REACTIVE (NON-REACTIVE) 06/16/22 OB Optional Labs: Chlamydia trachomatis RNA Not Detected (NotDetected) 06/16/22 Neisseria gonorrhoeae RNA Not Detected (NotDetected) 06/16/22 Thyroid Stimulating Hormone (TSH) 0.948 uIu/ml (0.300-4.500) 06/18/22 Labs Reviewed: Carrier sma; FOB testing negative--mln cfdna-low risk--mln Allergies Allergy/AdvReac Type Severity Reaction Status Date / Time No Known Allergies Allergy Verified 01/09/23 19:26 Home Medications Medication Instructions Recorded Confirmed Type PNV 982-vsokm-fizik-3-fish oil 1 dose PO QAM 06/11/22 01/11/23 History [ with DHA-Folic Acid] blood sugar diagnostic (OneTouch #150 ea 10/06/22 01/08/23 Rx Verio test strips) lancets 33 gauge #150 ea 10/06/22 01/08/23 Rx acetone (urine) test (Ketone Urine #50 ea 10/13/22 01/08/23 Rx Test strips) blood-glucose meter (OneTouch #1 ea 10/13/22 01/08/23 Rx Verio Reflect Meter) Patient History Medical History Bulging lumbar disc Gestational diabetes Herniated disc Varicella vaccine Surgical History S/P cholecystectomy History of Family History Mother Diabetes Depression Heart disease Kidney disease S/P removal of parathyroid gland Father Diabetes Grandmother (Maternal) Colorectal cancer Grandfather Colorectal cancer Grandmother (Paternal) Lung cancer Grandfather (Paternal) Lung cancer Other No family history of adverse response to anesthesia Denies family history of Ovarian cancer Prostate cancer Myocardial infarction Breast cancer Social History Smoking Status: Never smoker Second Hand Exposure: No; Do You Dip or Chew Tobacco: No; Hx Alcohol Use: No Hx Substance Use: No Preferred Language: Vietnamese Communication Ability: Effective Client Service Associate Required: No Beliefs That Will Affect Care: None marital status: marital status details: Gian Holman ( [phone]) [phone] Current Living Situation: Spouse Current Living Situation Comment: , son, 1 cat (spouse litter changing) current occupational status: employed 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 Other Information That Helps Us Care for You: No Feels Safe at Home: Yes Safety Concerns: Feels Safe At This Time Childhood Exposure to Second-Hand Smoke: No Dental Care, Regularly: No Physical Activity Frequency: 1-2 Times per Week Sunscreen Use: Yes Do you think of yourself as: straight/heterosexual Gender Identity: Female Assistive Devices: Glasses Results & Data Vital Signs (Past 12 Hours) Vital Signs Temp Pulse Resp BP 01/11/23 07:10 68 110/64 01/11/23 06:06 73 118/64 01/11/23 05:55 36.6 C 20 Code Status & VTE Plan VTE Prophylaxis Plan VTE Prophylaxis will be ordered: Yes Coding Level of Care Code None Diagnoses 39 weeks gestation of Z3A.39 Diet controlled gestational diabetes mellitus (GDM) in third trimester O24.410 Gestational diabetes mellitus control: diet-controlled Trimester: third trimester Encounter for supervision of normal in multigravida Z34.80 (2) Gestational diabetes Gestational diabetes mellitus control: diet-controlled Trimester: third trimester Qualified Code(s): O24.410 - Gestational diabetes mellitus in , diet controlled
--- NOTE | 2023-01-11 09:08 | Operative Report ---
PG Post Operative Report Pre & Post Diagnosis Operation Date: 01/11/23 07:30 Intrauterine at 39+ week Repeat I identified the patient and participated in the time-out.: Yes Procedure Operation Date: 01/11/23 07:30 Repeat low-transverse Surgeon Awais Major MD Door Fitter Dr. Adalgisa James Estimated Blood Loss 600 Findings Consistent with Post-Op Diagnosis Specimens None Description of Procedure The patient was taken to the operating room after consents were ensured. Upon presentation, she was properly identified. Epidural was bolused the anesth esia. The patient was then prepped and draped in normal sterile fashion. Preprocedural timeout was performed. A Pfannenstiel incision was then made with a knife. This was carried down to underlying fascia with the Bovie. The fascia was nicked at the midline with a knife and extended laterally with pickups and Ramos scissors. The superior aspect of the fascia was grasped with Kochers x2, elevated off the underlying rectus muscles with blunt dissection and Ramos scissors. Inferior aspect of the fascia was grasped with Kochers x2, elevated off the underlying rectus muscles using blunt dissection. The midline was then entered bluntly, placed on stretch to provide adequate room for delivery. A low transverse uterine incision was then made with a knife. The uterine cavity and amniotic cavity entered bluntly, placed on stretch to provide adequate room for delivery. Baby was noted to be in cephalic presentation and the head was delivered without difficulty. Body and shoulders quickly followed. was noted to be vigorous soon after delivery and 30 second delayed cord clamping was initiated. Cord was double clamped and cut and taken of the awaiting nursery staff for evaluation. Cord blood was obtained. Attention was then turned to delivery of the placenta, which was delivered intact, 3-vessel cord, with gentle cord traction and uterine massage. The uterus was then exteriorized, wrapped in a wet lap and several passes were made, removing any remaining membranes with a dry lap. The hysterotomy was then reapproximated with 0 Vicryl continuous running locked stitch. A second imbricating layer with 0 Vicryl with continuous running stitch. The hysterotomy was then reinspected and hemostasis was noted. Posterior cul-de-sac cleaned of clots and debris's. The uterus was then returned to the maternal abdomen. The right and left paracolic gutters were cleaned of clots and debris. The muscles, subcutaneous and fascial layers were inspected to be hemostatic.The facia was reapproximated with 0 Vicryl in continuous stitch. The subcutaneous layers were reapproximated with 2-0 plain and continuous running stitch in 1 layers. The skin was reapproximated with 3-0 Vicryl with a subcuticular stitch. Needle, sponge, and instrument counts were correct at the completion of the case. Both mother and stable in the immediate post- delivery period I attest to the content of the Intraoperative Record and any orders documented therein. Any exceptions are noted below. OB Procedure charges OB Charges [id number]
[2023-01-11] MEDS ORDERED: HYDROCORTISONE ACETATE 25 MG SUPP PR PRN (09:25)
[2023-01-11] MEDS ORDERED: SENNA 8.6 MG TAB PO PRN (09:25)
[2023-01-11] MEDS ORDERED: LACTATED RINGER'S 1,000 ML IV SCH (09:25)
[2023-01-11] MEDS ORDERED: MAGNESIUM HYDROXIDE SUSP 30 ML UDC PO PRN (09:25)
[2023-01-11] MEDS ORDERED: BENZOCAINE 20% SPRY 85 APPLN/85 GM CAN EXT PRN (09:25)
[2023-01-11] MEDS ORDERED: DIPHTHERIA/TETANUS/PERTUSSIS Vaccine (Tdap, Age 7+yrs) 0.5mL SYR/VL IM ONE (09:25)
[2023-01-11] MEDS: OXYTOCIN 20 UNITS/LR 1,002 ML IV SCH ×2 (10:02→18:15)
--- NOTE | 2023-01-11 10:23 | Anesthesiology Progress Note ---
Date of Service January 11, 2023 Anesthesia Post Procedure Vital Signs Vital Signs: Temp Pulse Resp BP Pulse Ox 01/11/23 10:20 70 100 01/11/23 10:15 71 100 01/11/23 10:10 64 99 01/11/23 10:05 100 01/11/23 10:05 64 01/11/23 10:05 64 109/57 L 01/11/23 10:00 68 99 01/11/23 09:56 71 110/58 L 01/11/23 09:55 73 99 01/11/23 09:50 76 100 01/11/23 09:45 16 01/11/23 09:45 68 117/58 L 99 01/11/23 09:40 81 99 01/11/23 09:35 18 01/11/23 09:35 72 131/68 99 01/11/23 09:30 74 99 01/11/23 09:25 16 01/11/23 09:25 100 01/11/23 09:25 79 01/11/23 09:25 110 H 116/66 91 01/11/23 09:20 67 98 01/11/23 09:16 71 115/57 L 01/11/23 09:15 18 01/11/23 09:15 77 98 01/11/23 09:10 67 99 01/11/23 09:05 36.5 C 16 01/11/23 09:05 71 115/58 L 96 01/11/23 07:10 36.5 C 68 18 110/64 01/11/23 06:06 73 118/64 01/11/23 05:55 36.6 C 20 Transfer of Care Handoff Completed per policy Notes Mental Status: alert / awake / arousable and participated in evaluation Patient Amnestic to Procedure: Yes Nausea / Vomiting: adequately controlled Pain: adequately controlled Airway Patency, RR, SpO2: stable & adequate BP & HR: stable & adequate Hydration State: stable & adequate Neuraxial Anesthesia: was administered and sensory block is resolving Anesthetic Complications: no major complications apparent and Pt Satisfied with anesthetic care
[2023-01-11] MEDS: KETOROLAC 30 MG/ML VIAL IV PRN ×3 (10:48→23:28)
[2023-01-11] MEDS: SIMETHICONE 80 MG CHEW PO SCH ×3 (13:38→20:37)
[2023-01-11] MEDS: DOCUSATE SODIUM 100 MG CAP PO SCH (20:37)
[2023-01-12] MEDS ORDERED: ONDANSETRON INJ 2 MG/ML 2 ML VIAL IV PRN (01:26)
[2023-01-12] MEDS ORDERED: diphenhydrAMINE 50 MG/ML VIAL IV PRN (01:26)
[2023-01-12] MEDS ORDERED: PROMETHAZINE HCL 25 MG in SODIUM CHLORIDE 0.9% 50 ML IV PRN (01:26)
[2023-01-12] MEDS ORDERED: KETOROLAC 30 MG/ML VIAL IV PRN (01:26)
[2023-01-12] MEDS ORDERED: diphenhydrAMINE Capsule 25 MG CAP PO PRN (01:26)
[2023-01-12 05:50] LABS: Basophils # (auto) 0.01 K/uL (0.00-0.20); Basophils % (auto) 0.1 %; Eosinophils # (auto) 0.02 K/uL (0.00-0.50); Eosinophils % (auto) 0.2 %; Hemoglobin 10.9 g/dl (12.0-16.0); Immature Granulocytes # (auto) 0.06 K/uL (0.01-0.20); Immature Granulocytes % (auto) 0.6 %; Lymphocytes # (auto) 1.36 K/uL (1.20-3.40); Lymphocytes % (auto) 14.4 %; Mean Corpuscular Hemoglobin 29.3 pg (25.0-34.0); Mean Corpuscular Hgb Conc 34.1 g/dL (32.0-36.0); Mean Platelet Volume 10.9 fL (9.4-12.4); Monocytes # (auto) 0.69 K/uL (0.11-0.59); Monocytes % (auto) 7.3 %; Neutrophils # (auto) 7.29 K/uL (1.40-6.50); Neutrophils % (auto) 77.4 %; Platelet Count 188 K/uL (130-400); RDW Coefficient of Variation 14.7 % (11.5-14.5); RDW Standard Deviation 46.3 fL (36.4-46.3); Red Blood Count 3.72 M/uL (4.20-5.40); White Blood Count 9.43 K/ul (4.8-10.8)
[2023-01-12] MEDS: oxyCODONE/ACETAMINOPHEN 5mg/325mg TAB PO PRN ×4 (06:18→23:28)
--- NOTE | 2023-01-12 06:57 | Obstetrical Progress Note ---
Date of Service <Amado Alonzo - Last Filed: 01/12/23 07:24> January 12, 2023 Assessment & Plan <Amado Rosado - Last Filed: 01/12/23 07:24> (1) care following delivery: Plan 27 year old female, , POD#1: Eating well, voiding well, ambulating well Vitals reviewed, WNL Pain well controlled with Percocet Routine post-op care - OOB, ambulation, diet progression as tolerated Will have 6 week follow up with Dr. Major <Awais Major MD - Last Filed: 01/12/23 08:26> (1) care following delivery: Subjective <Amado Rosado - Last Filed: 01/12/23 07:24> Ambulation: ambulating normally Voiding: no voiding problems Passing Gas:: Yes Diet Tolerance:: regular diet Lochia:: Moderate Feeding Type:: breast feeding Pain well controlled with Percocet Review of Systems -Denies fever or chills -Denies dyspnea, chest pain, or palpitations -Denies dysuria -Denies headache or changes in vision Physical Exam <Amado Rosado - Last Filed: 01/12/23 07:24> General: Alert and oriented. No acute distress Cardiac: Regular rate and rhythm, no murmurs appreciated Respiratory: Lungs clear to auscultation bilaterally, No increased work of breathing Abdominal: Soft, non-tender, non-distended. Bowel sounds present. Uterus: Uterine fundus firm, palpable below umbilicus Skin: incision site clean, dry, and intact Extremities: No lower extremity edema, calves non-tender bilaterally Results & Data <Amado Rosado - Last Filed: 01/12/23 07:24> Vital Signs (Past 12 Hours) Vital Signs Temp Pulse Resp BP Pulse Ox O2 Del Method 01/12/23 03:30 36.7 C 68 18 104/57 L 97 Room Air 01/12/23 01:25 18 98 01/12/23 00:00 16 95 01/11/23 23:25 18 97 01/11/23 23:02 36.8 C 66 18 108/52 L 97 Room Air 01/11/23 22:10 18 98 01/11/23 21:00 20 97 01/11/23 20:06 18 12/04/23 20:06 Room Air 01/11/23 20:06 36.8 C 68 18 112/68 99 Room Air 01/11/23 19:10 18 97 Supervising Physician <Awais Major MD - Last Filed: 01/12/23 08:26> Co-Signing Physician Notes Patient seen with resident and agree with the above findings and plan. Routine care. Resident Activity Tracking <Amado Rosado DO - Last Filed: 01/12/23 07:24> Resident Involvement: Resident Care Provided Care Provided: OB Delivery
[2023-01-12] MEDS: PRENATAL VITAMIN 1 TAB PO SCH (07:52)
[2023-01-12] MEDS: SIMETHICONE 80 MG CHEW PO SCH ×4 (07:52→20:05)
[2023-01-12] MEDS: DOCUSATE SODIUM 100 MG CAP PO SCH ×2 (07:52→20:05)
[2023-01-12] MEDS: FERROUS SULFATE 325 MG TAB PO SCH (07:52)
[2023-01-12] MEDS ORDERED: MEASLES, MUMPS & RUBELLA VIRUS VACCINE (MMR) VIAL SQ ONE (08:55)
[2023-01-12] MEDS: IBUPROFEN 600 MG TAB PO PRN ×3 (11:16→23:29)
[2023-01-12] MEDS ORDERED: bisacodyL 5 MG TABEC PO SCH (20:00)
[2023-01-13] MEDS: IBUPROFEN 600 MG TAB PO PRN ×2 (03:48→08:11)
[2023-01-13] MEDS: oxyCODONE/ACETAMINOPHEN 5mg/325mg TAB PO PRN ×2 (03:48→08:12)
--- NOTE | 2023-01-13 04:59 | Obstetrical Progress Note ---
Date of Service <Amado Rosado DO - Last Filed: 01/13/23 06:17> January 13, 2023 Assessment & Plan <Amado Rosado DO - Last Filed: 01/13/23 06:17> (1) care following delivery: Plan 27 year old female, , POD#2: Eating well, voiding well, ambulating well Vitals reviewed, WNL Pain well controlled with Percocet and Motrin Routine post-op care - OOB, ambulation, diet progression as tolerated Will have 6 week follow up with Dr. Major <Juli Camarillo MD, FACOG - Last Filed: 01/13/23 07:15> (1) care following delivery: Subjective <Amado Rosado DO - Last Filed: 01/13/23 06:17> Ambulation: ambulating normally Voiding: no voiding problems Passing Gas:: Yes Diet Tolerance:: regular diet Lochia:: Small Feeding Type:: breast feeding Pain well controlled with Percocet and Motrin Review of Systems -Denies fever or chills -Denies dyspnea, chest pain, or palpitations -Denies dysuria -Denies headache or changes in vision Physical Exam <Amado Rosado DO - Last Filed: 01/13/23 06:17> General: Alert and oriented. No acute distress Cardiac: Regular rate and rhythm, no murmurs appreciated Respiratory: Lungs clear to auscultation bilaterally, No increased work of breathing Abdominal: Soft, non-tender, non-distended. Bowel sounds present. Uterus: Uterine fundus firm, palpable below umbilicus Skin: incision site clean, dry, and intact Extremities: No lower extremity edema, calves non-tender bilaterally Results & Data <Amado Rosado DO - Last Filed: 01/13/23 06:17> Vital Signs (Past 12 Hours) Vital Signs Temp Pulse Resp BP Pulse Ox O2 Del Method 01/12/23 23:38 36.8 C 61 20 114/61 98 Room Air 01/12/23 20:18 36.5 C 71 18 117/60 98 Room Air 01/12/23 20:10 Room Air Supervising Physician <Juli Camarillo MD, FACOG - Last Filed: 01/13/23 07:15> Co-Signing Physician Notes Resident Physician Supervision Note: I interviewed and examined the patient. Discussed with Dr. Rosado and agree with findings and plan as documented in the note. Any exceptions or clarifications are listed here: Doing well postop day 2. Notes a slight cough, no other covid concerns. Pain controlled. Would like d/c today. Instructions reviewed. Documented By: Juli Camarillo MD, FACOG Resident Activity Tracking <Amado Rosado, DO - Last Filed: 01/13/23 06:17> Resident Involvement: Resident Care Provided Care Provided: OB Delivery
[2023-01-13 07:14] LABS: Hemoglobin 10.7 g/dl (12.0-16.0)
[2023-01-13] MEDS: PRENATAL VITAMIN 1 TAB PO SCH (08:11)
[2023-01-13] MEDS: SIMETHICONE 80 MG CHEW PO SCH (08:11)
[2023-01-13] MEDS: DOCUSATE SODIUM 100 MG CAP PO SCH (08:11)
[2023-01-13] MEDS ORDERED: bisacodyL 10 MG SUPP PR PRN (08:45)
[2023-01-13 09:01] VITALS: BP 115/74; PULSE 67; RESP 16; TEMP 97.5; O2SAT 96
[2023-01-13] MEDS: FERROUS SULFATE 325 MG TAB PO SCH (10:09)
== END 2023-01-13 11:00 | disposition home or self-care (01) | DRG 788 ==
LOC: 4S1 05:31 → EDSTATUS 07:30 → 4E1 12:34